=== PATIENT | male | born 1960 | race Caucasian/White ===

== ENCOUNTER 2016-08-19 11:31 | Emergency (ER) | payer BC ==
[~2016-08-19] VITALS: Ht 188 cm; Wt 97.5 kg
[~2016-08-19 11:31] MED LIST: GLYB1.257
[2016-08-19 15:09] VITALS: BP 146/97
== END 2016-08-19 16:20 | disposition home or self-care (01) ==
LOC: ER 11:37
DX: M95.12 Cauliflower ear, left ear (principal)
CPT/HCPCS: 69000

== ENCOUNTER → 2017-09-15 | Outpatient (CLI) | payer BC ==
[2017-09-15 09:09] LABS: Basophils # (auto) 0.1 uL; Basophils % (auto) 1.5 % (0.0-2.0); Eosinophils # (auto) 0.1 uL; Eosinophils % (auto) 2.6 % (0.0-7.0); Hematocrit 46.8 % (41.0-53.0); Hemoglobin 15.9 g/dL (13.5-17.5); Lymphocytes # (auto) 1.6 uL; Lymphocytes % (auto) 34.7 % (10.0-50.0); Mean Corpuscular Hemoglobin 31.6 pg (28.0-32.0); Mean Corpuscular Hgb Conc. 33.9 g/dL (32.0-36.0); Mean Corpuscular Volume 93.1 fL (80.0-100.0); Monocytes # (auto) 0.5 uL; Monocytes % (auto) 10.5 % (0.0-12.0); Neutrophils # (auto) 2.3 uL; Neutrophils % (auto) 50.7 % (37.0-80.0); Nucleated Red Blood Cells % 0.3 %; Platelet Count (auto) 232 10^3/uL (140-450); Red Blood Cells 5.03 10^6/uL (4.5-5.90); Red Cell Distribution Width 12.3 % (11.8-14.3); White Blood Cell 4.5 10^3/uL (4.4-10.8)
[2017-09-15 09:17] LABS: Urine Bacteria NONE SEEN /hpf (None Seen); Urine Blood Negative /uL (Negative); Urine Mucus FEW (None Seen); Urine Specific Gravity 1.029 (1.001-1.035); Urine WBC 1 /hpf (0 - 3)
[2017-09-15 12:05] LABS: Albumin 3.5 g/dL (3.4-5.0); BUN/Creatinine Ratio 23.3; Bilirubin, Total 0.6 mg/dL (0.2-1.0); Calcium 9.1 mg/dL (8.5-10.1); Potassium 4.9 mmol/L (3.5-5.1)
== END | disposition home or self-care (01) ==
LOC: LAB 08:51
PROVIDERS: ATTEND Internal Medicine
DX: E11.9 Type 2 diabetes mellitus without complications (principal); E78.5 Hyperlipidemia, unspecified
CPT/HCPCS: 36415; 80053; 80061; 81001; 83036; 84153; 84403; 84443; 85025

== ENCOUNTER → 2018-06-11 | Day surgery (SDC) | payer BC ==
[2018-06-07 10:05] LABS: Basophils # (auto) 0.1 uL; Basophils % (auto) 1.1 % (0.0-2.0); Eosinophils # (auto) 0.1 uL; Lymphocytes # (auto) 1.8 uL; Lymphocytes % (auto) 31.1 % (10.0-50.0); Mean Corpuscular Hemoglobin 31.5 pg (28.0-32.0); Mean Corpuscular Hgb Conc. 33.9 g/dL (32.0-36.0); Mean Corpuscular Volume 92.7 fL (80.0-100.0); Monocytes # (auto) 0.5 uL; Monocytes % (auto) 8.6 % (0.0-12.0); Neutrophils # (auto) 3.3 uL; Neutrophils % (auto) 57.2 % (37.0-80.0); Nucleated Red Blood Cells % 0.2 %; Platelet Count (auto) 249 10^3/uL (140-450); Red Blood Cells 5.07 10^6/uL (4.5-5.90); Red Cell Distribution Width 12.2 % (11.8-14.3); White Blood Cell 5.9 10^3/uL (4.4-10.8)
[2018-06-07 10:22] LABS: INR 0.86 (0.9-1.15); Partial Thromboplastin Time 26.7 sec (23.78-33.04); Prothrombin Time 9.3 sec (9.27-12.13)
[~2018-06-11] VITALS: Ht 188 cm; Wt 97.5 kg
[~2018-06-11] MED LIST changes: +ENAL2.5T PO; -GLYB1.257; +GLYB2.5T8 PO; +LABETALOL HCL 5 MG/ML 4ML SYRINGE IV ONE; +METF-370 PO; +SODIUM CHLORIDE LOCK 10 ML ONE; +diphenhdrAMINE 50mg/ml (500mg/10ml VIAL) ONE
[2018-06-11] MEDS: MIDAZOLAM HCL 5 MG/ML-1ML VIAL ONE ×2 (10:43→10:50)
[2018-06-11] MEDS: fentaNYL CITRATE 100 MCG/2 ML VL ONE ×2 (10:43→10:50)
[2018-06-11 11:37] VITALS: BP 138/92
== END | disposition home or self-care (01) ==
LOC: GI 08:32
PROVIDERS: ATTEND Internal Medicine Gastroenterology
DX: Z12.11 Encounter for screening for malignant neoplasm of colon (principal); D12.0 Benign neoplasm of cecum; D12.3 Benign neoplasm of transverse colon; K64.8 Other hemorrhoids; Z79.899 Other long term (current) drug therapy; Z79.84 Long term (current) use of oral hypoglycemic drugs; Z98.890 Other specified postprocedural states
CPT/HCPCS: 36415; 45380; 82962; 85025; 85610; 85730; 88305; 99152; J1200; J2250; J3010; J3490; J7030

== ENCOUNTER 2018-12-21 15:24 | Emergency (ER) | payer BC ==
[~2018-12-21] VITALS: Ht 188 cm; Wt 132.4 kg
[~2018-12-21 15:24] MED LIST changes: -LABETALOL HCL 5 MG/ML 4ML SYRINGE IV ONE; -SODIUM CHLORIDE LOCK 10 ML ONE; -diphenhdrAMINE 50mg/ml (500mg/10ml VIAL) ONE
[2018-12-21 15:31] VITALS: BP 153/98
== END 2018-12-21 16:32 | disposition left against medical advice (07) ==
LOC: ER 15:27
DX: M79.671 Pain in right foot (principal); Z53.21 Procedure and treatment not carried out due to patient leaving prior to being seen by health care provider

== ENCOUNTER 2018-12-22 07:22 | Emergency (ER) | payer BC ==
[~2018-12-22] VITALS: Ht 188 cm; Wt 98.9 kg
[2018-12-22 08:28] LABS: Basophils # (auto) 0.1 uL; Eosinophils # (auto) 0.2 uL; Hematocrit 42.9 % (41.0-53.0); Hemoglobin 14.6 g/dL (13.5-17.5); Lymphocytes # (auto) 1.2 uL; Lymphocytes % (auto) 14.5 % (10.0-50.0); Mean Corpuscular Hemoglobin 31.6 pg (28.0-32.0); Mean Corpuscular Volume 92.9 fL (80.0-100.0); Monocytes # (auto) 0.8 uL; Monocytes % (auto) 10.3 % (0.0-12.0); Neutrophils # (auto) 5.9 uL; Neutrophils % (auto) 72.2 % (37.0-80.0); Platelet Count (auto) 295 10^3/uL (140-450); Red Blood Cells 4.62 10^6/uL (4.5-5.90); Red Cell Distribution Width 12.3 % (11.8-14.3); White Blood Cell 8.2 10^3/uL (4.4-10.8)
[2018-12-22 08:32] LABS: Albumin 2.9 g/dL (3.4-5.0); Calcium 9.2 mg/dL (8.5-10.1)
[2018-12-22 08:38] LABS: Bilirubin, Total 0.5 mg/dL (0.2-1.0); Total Protein 7.3 g/dL (6.4-8.2)
[2018-12-22] MEDS ORDERED: SODIUM CHLORIDE 0.9% 1,000 ML IV ONE (09:15)
[2018-12-22] MEDS ORDERED: cefTRIAXone 1GM/50ML D5W 50 ML IV ONE (09:15)
[2018-12-22] MEDS ORDERED: CLINDAMYCIN 900MG IV 50 ML IV ONE (09:15)
[2018-12-22 09:28] VITALS: BP 140/76
== END 2018-12-22 10:39 | disposition left against medical advice (07) ==
LOC: ER 07:22
DX: S90.421A Blister (nonthermal), right great toe, initial encounter (principal); L08.9 Local infection of the skin and subcutaneous tissue, unspecified; L02.611 Cutaneous abscess of right foot; E11.9 Type 2 diabetes mellitus without complications; Z53.29 Procedure and treatment not carried out because of patient's decision for other reasons; X58.XXXA Exposure to other specified factors, initial encounter; Y93.89 Activity, other specified; Y99.8 Other external cause status; Y92.89 Other specified places as the place of occurrence of the external cause
CPT/HCPCS: 10060; 36415; 80053; 85025; 96365; 96368; 99283; J0696; J3490

== ENCOUNTER 2018-12-26 08:26 | Inpatient (IN) | payer BC ==
[~2018-12-26] VITALS: Ht 188 cm; Wt 101.6 kg
[2018-12-26 09:51] LABS: Albumin 2.7 g/dL (3.4-5.0); BUN/Creatinine Ratio 8.4; Calcium 8.6 mg/dL (8.5-10.1); Potassium 4.5 mmol/L (3.5-5.1)
[2018-12-26 09:52] LABS: Basophils # (auto) 0.1 uL; Basophils % (auto) 0.8 % (0.0-2.0); Eosinophils # (auto) 0.1 uL; Eosinophils % (auto) 1.6 % (0.0-7.0); Hematocrit 42.6 % (41.0-53.0); Hemoglobin 14.6 g/dL (13.5-17.5); Lymphocytes # (auto) 1.3 uL; Lymphocytes % (auto) 17.7 % (10.0-50.0); Mean Corpuscular Hemoglobin 31.7 pg (28.0-32.0); Mean Corpuscular Hgb Conc. 34.3 g/dL (32.0-36.0); Mean Corpuscular Volume 92.3 fL (80.0-100.0); Monocytes # (auto) 0.7 uL; Monocytes % (auto) 9.9 % (0.0-12.0); Neutrophils # (auto) 5.1 uL; Platelet Count (auto) 352 10^3/uL (140-450); Red Blood Cells 4.61 10^6/uL (4.5-5.90); Red Cell Distribution Width 12.2 % (11.8-14.3); White Blood Cell 7.3 10^3/uL (4.4-10.8)
[2018-12-26 09:54] LABS: Bilirubin, Total 0.3 mg/dL (0.2-1.0); Total Protein 6.9 g/dL (6.4-8.2)
[2018-12-26] MEDS ORDERED: SODIUM CHLORIDE 0.9% 1,000 ML IVB ONE (11:05)
[2018-12-26] MEDS ORDERED: VANCOMYCIN 1GM/250ML 250 ML IV ONE (11:15)
[2018-12-26] MEDS ORDERED: POTASSIUM EFFERVESENT TAB 25 MEQ PO ONE (12:45)
[2018-12-26] MEDS ORDERED: TETANUS-DIPTH-ACEL PERTUSSIS 0.5ML SYRG IM ONE (13:15)
[2018-12-26] MEDS ORDERED: HYDROcodone-ACET 5/325MG TAB PO PRN (14:00)
[2018-12-26] MEDS ORDERED: NITROGLYCERIN 0.4 MG SL TAB SL PRN (14:00)
[2018-12-26] MEDS ORDERED: DEXTROSE (50%) 50ML SYRG IV PRN (14:00)
[2018-12-26] MEDS ORDERED: MORPHINE SULF INJ 2 MG/ML SYRINGE 1ML IV PRN ×2 (14:00)
[2018-12-26] MEDS ORDERED: VANCOMYCIN PER PHARMACY 0 MG IV SCH (14:00)
[2018-12-26] MEDS ORDERED: ACETAMINOPHEN 500 MG TAB PO PRN (14:00)
[2018-12-26] MEDS ORDERED: PIPERACILLIN-TAZOB 3.375GM 100 ML IV ONE (14:15)
[2018-12-26] MEDS ORDERED: FAMOTIDINE 20 MG TAB PO ONE (14:15)
[2018-12-26 14:30] LABS: Urine WBC None Seen /hpf (0 - 3)
[2018-12-26 14:47] LABS: Urine Bacteria NONE SEEN /hpf (None Seen); Urine Blood Negative /uL (Negative); Urine Specific Gravity 1.005 (1.001-1.035)
[2018-12-26 17:18] VITALS: BP 149/95
[2018-12-26 18:25] VITALS: BP 132/72
--- NOTE | 2018-12-26 19:30 | NUR ---
OPEN SHIFT NOTE PATIENT IS ALERT AND ORIENTED X4 ON ROOM AIR, LEFT AC 20 GAUGE IS INTACT AND PATENT. FAMILY IS AT BEDSIDE. PATIENT STATES 0/10 PAIN. POC DISCUSSED AND QUESTIONS ANSWERED. BED IS LOCKED IN LOWEST POSITION WITH SIDE RAILS UP X1 FOR SAFETY. CALL LIGHT IS WITHIN REACH AND PATIENT ENCOURAGED TO CALL IF NEEDS ANYTHING. WILL CONTINUE TO ROUND Q1HR AND PRN.
[2018-12-26] MEDS: ACCU-CHEK COMFORT CURVE STRIP VI SCH ×2 (19:35→22:38)
[2018-12-26] MEDS: PIPERACILLIN-TAZOB 3.375GM 100 ML IV SCH (19:35)
[2018-12-26] MEDS: InsuLIN REG 1unit/0.01ml Soln (100units/ml) SC SCH ×2 (19:38→22:48)
[2018-12-26 20:10] VITALS: BP 137/92
[2018-12-26] MEDS: VANCOMYCIN 1GM/250ML 250 ML IV SCH (20:32)
[2018-12-26 22:00] VITALS: BP 137/92
[2018-12-26] MEDS: FAMOTIDINE 20 MG TAB PO SCH (22:38)
--- NOTE | 2018-12-26 22:50 | NUR ---
CLEANSED WOUND PATIENT HAS WOUND TO THE RIGHT GREAT TOE. CLEANSED WITH WOUND CLEANSER AND APPLIED OPTI FOAM. WOUND CONSULT IS PENDING.
[2018-12-27] MEDS: PIPERACILLIN-TAZOB 3.375GM 100 ML IV SCH ×5 (00:18→23:53)
[2018-12-27] MEDS: VANCOMYCIN 1GM/250ML 250 ML IV SCH ×2 (04:04→11:15)
[2018-12-27 05:00] VITALS: BP 136/84
[2018-12-27 07:07] LABS: Albumin 2.5 g/dL (3.4-5.0); BUN/Creatinine Ratio 7.6; Calcium 8.4 mg/dL (8.5-10.1); Potassium 3.9 mmol/L (3.5-5.1)
[2018-12-27] MEDS: InsuLIN REG 1unit/0.01ml Soln (100units/ml) SC SCH ×4 (07:07→22:21)
[2018-12-27] MEDS: ACCU-CHEK COMFORT CURVE STRIP VI SCH ×4 (07:07→22:07)
[2018-12-27 07:10] LABS: Bilirubin, Total 0.2 mg/dL (0.2-1.0); Total Protein 6.1 g/dL (6.4-8.2)
--- NOTE | 2018-12-27 08:00 | NUR ---
Opening Shift Note Assumed care of patient, awake and alert. No S/S of distress/SOB or pain. With non-healing wound on right great toe. Instructed on POC and to call for assist PRN, will continue to monitor for changes Q1hr and PRN.
--- NOTE | 2018-12-27 08:30 | NUR ---
Wound cleaning and wound dressing done. Waiting for wound consult.
--- NOTE | 2018-12-27 08:58 | NUR ---
Orders received from Dr. Yang, patient is for MRI of right foot without contrast.
[2018-12-27 09:00] VITALS: BP 137/83
[2018-12-27] MEDS ORDERED: LORazepam 2MG/ML-1ML VIAL IV ONE (09:15)
[2018-12-27] MEDS: FAMOTIDINE 20 MG TAB PO SCH ×2 (10:27→22:07)
[2018-12-27 13:00] VITALS: BP 143/87
--- NOTE | 2018-12-27 14:00 | NUR ---
WOUND CARE NOTE: PATIENT HAS RIGHT # [address] KRISHNA WILL BE PERFORMING AMPUTATION OF THE RIGHT # 1 TOE TOMORROW. SKIN/WOUND CARE PLAN UPDATED. DIETARY CONSULT ORDERED FOR WOUND. WILL DEFER ALL OTHER RECOMMENDATIONS TO DR. KRISHNA AT THIS TIME. NO FURTHER WOUND CARE NEEDED, UNLESS DR. KRISHNA ORDERS FOR POST OPERATIVE WOUND CARE.
--- NOTE | 2018-12-27 16:20 | NUR ---
Wound cleaning and dressing change with application of thera honey on the right great toe done. Per structural analysis engineer may change dressing every other day.
[2018-12-27 17:02] VITALS: BP 129/81
--- NOTE | 2018-12-27 17:52 | NUR ---
Osteomyelitis on the right great toe revealed on the right foot MRI, Dr. Yang made aware, orders received. For amputation of the right great toe tomorrow. Will place on NPO after midnight.
--- NOTE | 2018-12-27 18:54 | NUR ---
Patient made aware that he will be placed on NPO after midnight tonight and Dr. Yang will explain the details of the procedure tomorrow.
[2018-12-27 20:05] VITALS: BP 134/87
[2018-12-27] MEDS: VANCOMYCIN 1,250 MG in D5W 5% 250 ML IV SCH (20:12)
[2018-12-27 20:48] LABS: INR < 0.93 (0.9-1.15); Partial Thromboplastin Time 26.1 sec (23.64-32.05)
[2018-12-27 21:15] VITALS: BP 134/87
[2018-12-27] MEDS: INSULIN LANTUS (GLARGINE) 1 /0.01ml (100units/ml) SC SCH (22:22)
[2018-12-28] MEDS: VANCOMYCIN 1,250 MG in D5W 5% 250 ML IV SCH ×3 (03:58→20:00)
[2018-12-28 05:04] VITALS: BP 138/86
[2018-12-28] MEDS: PIPERACILLIN-TAZOB 3.375GM 100 ML IV SCH ×3 (06:00→17:40)
[2018-12-28] MEDS: ACCU-CHEK COMFORT CURVE STRIP VI SCH ×4 (06:35→21:31)
[2018-12-28] MEDS: InsuLIN REG 1unit/0.01ml Soln (100units/ml) SC SCH ×4 (06:40→21:30)
[2018-12-28 08:00] VITALS: BP 154/94
--- NOTE | 2018-12-28 08:00 | NUR ---
Opening Shift Note Assumed care of patient, awake and alert. No S/S of distress/SOB or pain. With dressing on right great toe intact. Maintained on NPO for amputation of the right great toe to be performed by Dr. Yang. Instructed on POC and to call for assist PRN, will continue to monitor for changes Q1hr and PRN.
[2018-12-28] MEDS: FAMOTIDINE 20 MG TAB PO SCH ×2 (09:46→21:19)
[2018-12-28 12:00] VITALS: BP 138/88
--- NOTE | 2018-12-28 12:30 | NUR ---
NUTRITION CONSULT/ASSESSMENT NOTES Please refer to link notes of nutrition screen form filed under the intervention section of the plan of care for further details. Est. Needs: 2050 kcal to 2550 kcal (20-25 kcal/kgBW), 86 gms to 102 gms pro (0.8-1.0 gms/kgBW). Will continue to monitor pertinent labs and reassess nutrient need prn Thank you for this consult. Addendum: 12/28/18 at [address] Amended: Links added.
--- NOTE | 2018-12-28 14:45 | NUR ---
Patient down in pre-op for amputation of right great toe to be performed by Dr. Yang. Gave reports to Debra LEONARD.
--- NOTE | 2018-12-28 17:06 | NUR ---
Received reports from TANK FARM OPERATOR, procedure has been cancelled. Patient to receive mcfp IV antibiotics. PICC line consult.
--- NOTE | 2018-12-28 17:08 | NUR ---
Patient back to his room.
--- NOTE | 2018-12-28 17:13 | NUR ---
assessment Patient is a 58 year old male who is alert and oriented. prior to admission patient lived home with family and was independent. Patients PCP is Dr Reid. Patient has no advanced directive and does not want one at this time. Patient was admitted for diabetic foot wound. Patient may need home IV ABX. Patient informed me he is teachable and so is family. Will continue to monitor for post discharge needs. Addendum: 12/28/18 at 1715 by Anita GEE Amended: Links added.
[2018-12-28 17:26] VITALS: BP 149/101
--- NOTE | 2018-12-28 19:30 | NUR ---
OPENING SAMPLE PULLER NOTE ASSUMED CARE OF PATIENT FROM ANGELA LEONARD. PATIENT IS ALERT AND ORIENTED X4, ON ROOM AIR, LEFT AC 20 GAUGE IS INTACT AND PATENT. FAMILY IS AT BEDSIDE. PATIENT STATES 0/10 PAIN. POC DISCUSSED AND QUESTIONS ANSWERED. BED IS LOCKED IN LOWEST POSITION WITH SIDE RAILS UP X1 FOR SAFETY. CALL LIGHT IS WITHIN REACH AND PATIENT ENCOURAGED TO CALL IF NEEDS ANYTHING. WILL CONTINUE TO ROUND Q1HR AND PRN.
--- NOTE | 2018-12-28 20:00 | NUR ---
WOUND CARE COMPLETE/PATIENT TEACHING ON WOUND CARE. CLEANED WITH WOUND CLEANSER, PATTED DRY WITH STERIL GAUZE, APPLIED THERAPHONEY, COVERED WITH GAUZE. REINFORCED WITH ABD AND TAPE. NON-SKID SOCK APPLIED OVER. PATIENT AND FAMILY AT BEDSIDE. RN EDUCATING ON WOUND CARE AND DM.
--- NOTE | 2018-12-28 20:10 | NUR ---
DM EDUCATION AND HANDOUTS GIVEN TO PATIENT
[2018-12-28] MEDS: INSULIN LANTUS (GLARGINE) 1 /0.01ml (100units/ml) SC SCH (21:31)
[2018-12-28 22:00] VITALS: BP 134/80
[2018-12-29] MEDS: VANCOMYCIN 1,250 MG in D5W 5% 250 ML IV SCH ×3 (04:03→20:43)
[2018-12-29 05:00] VITALS: BP 114/66
[2018-12-29] MEDS: ACCU-CHEK COMFORT CURVE STRIP VI SCH ×4 (06:17→21:22)
[2018-12-29] MEDS: PIPERACILLIN-TAZOB 3.375GM 100 ML IV SCH ×5 (06:17→23:59)
[2018-12-29] MEDS: InsuLIN REG 1unit/0.01ml Soln (100units/ml) SC SCH ×4 (06:17→21:24)
--- NOTE | 2018-12-29 07:18 | NUR ---
CLOSING NOTE CARE ENDORSED TO JACKIE LEONARD
--- NOTE | 2018-12-29 07:30 | NUR ---
Opening Shift Note Assumed care of patient, awake and alert. No S/S of distress/SOB or pain. Instructed on POC and to call for assist PRN, will continue to monitor for changes Q1hr and PRN.
--- NOTE | 2018-12-29 08:30 | NUR ---
WOUND DRESSING ON RIGHT TOE CLEAN, DRY AND INTACT.
[2018-12-29 09:02] VITALS: BP 116/77
[2018-12-29] MEDS: FAMOTIDINE 20 MG TAB PO SCH ×2 (09:41→21:21)
--- NOTE | 2018-12-29 10:30 | NUR ---
SIGNATURE OBTAINED FOR PICC LINE ORDER. PICC RN PAGED. WAITING FOR CALL BACK.
--- NOTE | 2018-12-29 12:30 | NUR ---
IV removal PT C/O DISCOMFORT ON IV SITE. SWELLING AND REDNESS NOTED. IV DC'd with clean sterile technique, catheter fully intact. Pressure dressing applied to site. Patient tolerated well. NOTE:
--- NOTE | 2018-12-29 13:09 | NUR ---
PICC LINE RN RE-PAGED. WAITING FOR CALL BACK.
--- NOTE | 2018-12-29 14:17 | NUR ---
[facility] SHE WILL BE ABLE TO DO IT AT 1600 TODAY. Addendum: 12/29/18 at 1841 by Melina Wilder RN NAME ERROR. SPOKE TO SOSA GODDARD RN.
--- NOTE | 2018-12-29 16:27 | NUR ---
PICC RN AT BEDSIDE.
--- NOTE | 2018-12-29 16:58 | NUR ---
PICC line placement Patient educated on need for PICC line placement. All risks and benefits explained and all questions and concerns addressed prior to procedure. Noted past medical history and allergies with no contraindications. INR and Plt counts within acceptable range. 4 fr PICC line inserted via right basilic vein using [employer] US and Tip Location System. Sterile technique with maximum barrier precautions utilized. Blood return obtained from single lumen and each flushed easily with NS using proper technique. PICC secured with Stat-lock; biodisc and occlusive dressing applied. Stat portable chest x-ray obtained for PICC tip placement. *Baseline Arm Circumference 31 cm. *Internal Length 45 cm. *External Length 0 cm. *PICC lot #[id number]. Note: EBL 5mls. Placed easily, tolerated procedure well.
[2018-12-29] MEDS ORDERED: LIDOCAINE 1% (LOCAL ANESTH.) PF 5ml SDV ID ONE (17:00)
--- NOTE | 2018-12-29 17:00 | NUR ---
INFORMED PHARMACY THAT PT'S 1200 VANCOMYCIN WASN'T COMPLETELY INFUSED DUE TO INFILTRATED IV. PER PHARMACY, KEEP THE 2200 SCHEDULE TONIGHT.
--- NOTE | 2018-12-29 17:40 | NUR ---
Okay to Use PICC Line X-ray completed. Primary RN notified.
[2018-12-29] MEDS: Glucerna Carbsteady SHAKE Vanilla 8oz PO SCH (18:06)
--- NOTE | 2018-12-29 18:15 | NUR ---
PICC LINE ACCESSED. ZOSYN, IV INFUSION STARTED.
--- NOTE | 2018-12-29 19:40 | NUR ---
OPENING SHIFT NOTE RECEIVED REPORT FROM DAYSHIFT RN. PATIENT RESTING COMFORTABLY IN BED WITH AT BEDSIDE. NO S/S OF DISTRESS OR SOB, PATIENT DENIES PAIN AT THIS TIME. PATIENT A/O X4, AMBULATORY. UPDATED PATIENT ON POC, VERBALIZED UNDERSTANDING. BED LOCKED IN LOW POSITION, CALL LIGHT WITHIN REACH. WILL CONTINUE TO MONITOR PATIENT Q1HR AND PRN.
[2018-12-29] MEDS: SODIUM CHLOR 0.9% PF (SALINE LOCK) 10ML VIAL/SYR IV SCH (21:21)
[2018-12-29 22:00] VITALS: BP 135/95
[2018-12-29] MEDS ORDERED: INSULIN LANTUS (GLARGINE) 1 /0.01ml (100units/ml) SC SCH (22:00)
[2018-12-30] MEDS: VANCOMYCIN 1,250 MG in D5W 5% 250 ML IV SCH ×3 (04:01→20:09)
[2018-12-30 04:50] VITALS: BP 138/85
[2018-12-30 06:00] LABS: Basophils # (auto) 0 uL; Basophils % (auto) 0.5 % (0.0-2.0); Eosinophils # (auto) 0.1 uL; Eosinophils % (auto) 1.6 % (0.0-7.0); Hemoglobin 14.1 g/dL (13.5-17.5); Lymphocytes # (auto) 1.2 uL; Mean Corpuscular Hemoglobin 31.6 pg (28.0-32.0); Mean Corpuscular Hgb Conc. 34.4 g/dL (32.0-36.0); Mean Corpuscular Volume 91.7 fL (80.0-100.0); Monocytes # (auto) 0.8 uL; Neutrophils # (auto) 6.6 uL; Neutrophils % (auto) 74.9 % (37.0-80.0); Platelet Count (auto) 316 10^3/uL (140-450); Red Blood Cells 4.47 10^6/uL (4.5-5.90); Red Cell Distribution Width 12.7 % (11.8-14.3); White Blood Cell 8.7 10^3/uL (4.4-10.8)
[2018-12-30 06:13] LABS: Calcium 8.2 mg/dL (8.5-10.1); Potassium 3.7 mmol/L (3.5-5.1)
[2018-12-30 06:15] LABS: BUN/Creatinine Ratio 8.5
[2018-12-30] MEDS: PIPERACILLIN-TAZOB 3.375GM 100 ML IV SCH ×4 (06:16→22:02)
[2018-12-30] MEDS: ACCU-CHEK COMFORT CURVE STRIP VI SCH ×4 (06:16→22:03)
[2018-12-30] MEDS: InsuLIN REG 1unit/0.01ml Soln (100units/ml) SC SCH ×4 (06:17→22:04)
[2018-12-30] MEDS: Glucerna Carbsteady SHAKE Vanilla 8oz PO SCH ×3 (08:00→17:22)
[2018-12-30 09:25] VITALS: BP 148/88
[2018-12-30] MEDS: FAMOTIDINE 20 MG TAB PO SCH ×2 (10:00→22:02)
[2018-12-30] MEDS: SODIUM CHLOR 0.9% PF (SALINE LOCK) 10ML VIAL/SYR IV SCH ×2 (10:00→22:02)
--- NOTE | 2018-12-30 10:30 | NUR ---
Rounds Patient awake and alert. No S/S of distress/SOB or pain. Will continue to monitor changes q1hr and PRN.
[2018-12-30 12:34] VITALS: BP 131/79
--- NOTE | 2018-12-30 15:34 | NUR ---
WOUND CARE WOUND ON RIGHT GREAT TOE CLEANED, AND DRESSED WITH THERA HONEY AND GAUZE PAD. SECURED WITH TAPE. PT TOLERATED WELL. AT BEDSIDE.
[2018-12-30 17:17] VITALS: BP 125/77
--- NOTE | 2018-12-30 18:37 | NUR ---
Rounds Patient awake and alert. No S/S of distress/SOB or pain. Will continue to monitor changes q1hr and PRN.
--- NOTE | 2018-12-30 19:35 | NUR ---
OPENING SHIFT NOTE RECEIVED REPORT FROM DAYSHIFT RN. PATIENT RESTING COMFORTABLY IN BED WITH EYES CLOSED. NO S/S OF DISTRESS OR SOB, PATIENT DENIES PAIN AT THIS TIME. PATIENT A/O X4, AMBULATORY. UPDATED PATIENT ON POC, VERBALIZED UNDERSTANDING. BED LOCKED IN LOW POSITION, CALL LIGHT WITHIN REACH. WILL CONTINUE TO MONITOR PATIENT Q1HR AND PRN.
[2018-12-30 22:00] VITALS: BP 145/82
[2018-12-30] MEDS ORDERED: INSULIN LANTUS (GLARGINE) 1 /0.01ml (100units/ml) SC SCH (22:00)
[2018-12-31] MEDS: PIPERACILLIN-TAZOB 3.375GM 100 ML IV SCH (02:56)
[2018-12-31] MEDS: VANCOMYCIN 1,250 MG in D5W 5% 250 ML IV SCH ×2 (04:00→12:14)
[2018-12-31 05:19] VITALS: BP 152/92
[2018-12-31] MEDS: InsuLIN REG 1unit/0.01ml Soln (100units/ml) SC SCH ×4 (06:26→21:49)
[2018-12-31] MEDS: ACCU-CHEK COMFORT CURVE STRIP VI SCH ×4 (06:26→21:48)
[2018-12-31 06:47] LABS: Basophils # (auto) 0.1 uL; Basophils % (auto) 0.6 % (0.0-2.0); Eosinophils # (auto) 0.1 uL; Eosinophils % (auto) 1.6 % (0.0-7.0); Hematocrit 42.1 % (41.0-53.0); Hemoglobin 14.5 g/dL (13.5-17.5); Lymphocytes % (auto) 11.4 % (10.0-50.0); Mean Corpuscular Hemoglobin 31.5 pg (28.0-32.0); Mean Corpuscular Hgb Conc. 34.5 g/dL (32.0-36.0); Mean Corpuscular Volume 91.4 fL (80.0-100.0); Monocytes # (auto) 0.7 uL; Monocytes % (auto) 8.1 % (0.0-12.0); Neutrophils # (auto) 7.1 uL; Neutrophils % (auto) 78.3 % (37.0-80.0); Platelet Count (auto) 323 10^3/uL (140-450); Red Blood Cells 4.61 10^6/uL (4.5-5.90); Red Cell Distribution Width 12.4 % (11.8-14.3); White Blood Cell 9.1 10^3/uL (4.4-10.8)
[2018-12-31 07:07] LABS: BUN/Creatinine Ratio 8.1; Calcium 8.4 mg/dL (8.5-10.1); Potassium 3.9 mmol/L (3.5-5.1)
[2018-12-31] MEDS: Glucerna Carbsteady SHAKE Vanilla 8oz PO SCH ×3 (08:00→18:40)
--- NOTE | 2018-12-31 08:38 | NUR ---
Weekend access consultant-I received a page 12/30/18 from nurse Melina letting me know that this patient has order to go home on IV ATB-I let her know that this was not something that could be taken care of on a Monday and that we would have to follow up on Monday. [facility] closed on Sundays as well.
[2018-12-31 09:24] VITALS: BP 157/89
[2018-12-31] MEDS: FAMOTIDINE 20 MG TAB PO SCH ×2 (10:45→21:48)
[2018-12-31] MEDS: LEVOFLOXACIN 750MG 150 ML IV SCH (10:45)
[2018-12-31] MEDS: SODIUM CHLOR 0.9% PF (SALINE LOCK) 10ML VIAL/SYR IV SCH ×2 (10:46→21:48)
[2018-12-31] MEDS ORDERED: INSULIN LANTUS (GLARGINE) 1 /0.01ml (100units/ml) SC ONE (11:30)
--- NOTE | 2018-12-31 11:51 | NUR ---
Nutrition Follow-up Notes Wt.: 101.6 kg Pt was sleeping with no family by bedside. per nursing pt with no distress noted currently on CCHO 60 gm/meal diet with Glucerna 1 carton tid. pt with adequate PO of 100% x 4 per RN doc Est. Needs: 2050 kcal to 2550 kcal (20-25 kcal/kgBW), 86 gms to 102 gms pro (0.8-1.0 gms/kgBW). Will continue to monitor pertinent labs and reassess nutrient need prn Labs: GLU 205 H, CA 8.4 L. Skin: Curly scale 20 mod risk,puncture on toe per packager and strapper. refer to WC notes for details GI: Pt had 1 BM today per packager and strapper. PES: Altered nutrition related lab values r/t current/chronic medical condition aeb hyperglycemia, hyperchloremia, elev. HbA1c,low AST, hypocalcemia and mod hypoalbuminemia Will continue to monitor PO intake, skin status, pertinent labs and weight trend. F/u in 3-5 days. Rec.: 1.) Consider Consistent High Carb: 75 gms/meal diet. 2.) If Albumin level continues trending down, consider Prostat 1 pkt BID. 3.) Consider daily MVI with minerals and Asc acid 500 mgs BID. 4.) Consider close supervision and feeding assistance prn during meals 5.) Refer to CDE/RD for further nutrition education and weight monitoring upon discharged. 6.) Continue current plan of care.
[2018-12-31 13:00] VITALS: BP 155/100
--- NOTE | 2018-12-31 14:24 | NUR ---
faxed ss order for home abx to [facility] in managed care, [facility] and [facility]
--- NOTE | 2018-12-31 16:20 | NUR ---
[facility] NOT CONTRACTED WITH BS. I SPOKE TO ANITA AT [facility] AND THEY CAN PROVIDE HH. ANITA IS TO CONTACT PT DUC AND WILL ARRANGE [facility] ON 01-02-19
[2018-12-31 16:53] VITALS: BP 160/96
--- NOTE | 2018-12-31 18:41 | NUR ---
Diabetes and insulin administration education provided including sliding scale coverage.
--- NOTE | 2018-12-31 18:41 | NUR ---
Care endorsed to power and recovery shift engineer RN. No S/s of distress or SOB.
[2018-12-31 22:00] VITALS: BP 156/93
[2018-12-31] MEDS ORDERED: INSULIN LANTUS (GLARGINE) 1 /0.01ml (100units/ml) SC SCH (22:00)
[2019-01-01 05:39] VITALS: BP 112/53
[2019-01-01] MEDS: ACCU-CHEK COMFORT CURVE STRIP VI SCH ×2 (06:17→11:58)
[2019-01-01] MEDS: InsuLIN REG 1unit/0.01ml Soln (100units/ml) SC SCH ×2 (06:18→11:58)
[2019-01-01 06:55] LABS: Basophils # (auto) 0.1 uL; Basophils % (auto) 0.6 % (0.0-2.0); Eosinophils # (auto) 0.1 uL; Eosinophils % (auto) 1.1 % (0.0-7.0); Hematocrit 44.6 % (41.0-53.0); Hemoglobin 14.8 g/dL (13.5-17.5); Lymphocytes # (auto) 1.2 uL; Lymphocytes % (auto) 11.4 % (10.0-50.0); Mean Corpuscular Hemoglobin 30.8 pg (28.0-32.0); Mean Corpuscular Hgb Conc. 33.3 g/dL (32.0-36.0); Mean Corpuscular Volume 92.6 fL (80.0-100.0); Monocytes # (auto) 0.9 uL; Monocytes % (auto) 8.4 % (0.0-12.0); Neutrophils # (auto) 8.1 uL; Neutrophils % (auto) 78.5 % (37.0-80.0); Nucleated Red Blood Cells % 0.1 %; Platelet Count (auto) 326 10^3/uL (140-450); Red Blood Cells 4.82 10^6/uL (4.5-5.90); Red Cell Distribution Width 12.4 % (11.8-14.3); White Blood Cell 10.3 10^3/uL (4.4-10.8)
--- NOTE | 2019-01-01 07:15 | NUR ---
Opening Shift Note Assumed care of patient, awake and alert, sitting up in bed watching television. No S/S of distress/SOB, no pain noted or reported at this time. Respirations are even and unlabored. Instructed on POC and instructed to call for assistance as needed, pt. verbalized understanding. Bed locked in lowest position, side rails up x2, call light within reach. Will continue to monitor for changes Q1hr and PRN.
[2019-01-01 07:36] LABS: BUN/Creatinine Ratio 12.1; Calcium 9.4 mg/dL (8.5-10.1); Potassium 3.7 mmol/L (3.5-5.1)
[2019-01-01 08:43] VITALS: BP 164/97
--- NOTE | 2019-01-01 08:51 | NUR ---
Jen from [facility] left me a message stating everything has been arranged and she spoke to pt. I have called Jen back and left a message for her to let me know what HH agency they are using or if they are providing the nurse themselves.
[2019-01-01] MEDS: LEVOFLOXACIN 750MG 150 ML IV SCH (09:42)
[2019-01-01] MEDS: Glucerna Carbsteady SHAKE Vanilla 8oz PO SCH ×2 (09:42→11:58)
[2019-01-01] MEDS: SODIUM CHLOR 0.9% PF (SALINE LOCK) 10ML VIAL/SYR IV SCH (09:42)
[2019-01-01] MEDS: FAMOTIDINE 20 MG TAB PO SCH (09:42)
--- NOTE | 2019-01-01 12:54 | NUR ---
Kellie at [facility] stated [facility] have nurses that provide teaching and hanging infusion for this pt, so "HH" and infusion is all arranged and pt can go home from a CM's stand point
--- NOTE | 2019-01-01 15:30 | NUR ---
Discharge instructions given as ordered. Pt. going home with 4 weeks home health for Antibiotics. Encourage to follow up with REGENERATOR OPERATOR as instructed. All questions and concerns addressed. Patient verbalized understanding. Medication reconciliation form completed and copy given to patient. DC wound care photo taken. Patient taken to vehicle via wheelchair with all personal belongings, accompanied by staff and family member. No distress noted at time of departure.
--- NOTE | 2019-01-02 16:57 | NUR ---
MEDICATION PT AND HOME HEALTH NURSE CALLED [facility] AND SPOKE TO THIS POWER LINE INSTALLER AND REPAIRER RE: THE INABILITY TO FILL INSULIN SCRIPT DUE TO THE WAY IT WAS WRITTEN BY DR MORENO. PT ATTEMPTING TO FILL SCRIPT AT [facility] ON [address] IN [place]. CALLED [facility] AND SPOKE TO PHARMACIST TO CLARIFY ORDER. PT CALLED ([phone]) AND NOTIFIED THAT THE SCRIPTS WILL BE AVAIL TO [facility] IN 30 MIN. [facility] NURSE ALSO NOTIFIED ([phone]).
== END 2019-01-01 15:30 | disposition home health service (06) | DRG 638 ==
LOC: ER 08:26 → OVERFLOW 08:27 → WEST WING 15:12
PROVIDERS: ADMIT Nurse Practitioner Acute Care; ATTEND Internal Medicine Pulmonary Disease
PROC: 02HV33Z Insertion of Infusion Device into Superior Vena Cava, Percutaneous Approach (ICD-10-PCS; principal; 2018-12-29)
DX: E11.69 Type 2 diabetes mellitus with other specified complication (principal); E44.0 Moderate protein-calorie malnutrition; M86.8X7 Other osteomyelitis, ankle and foot; L03.031 Cellulitis of right toe; E11.621 Type 2 diabetes mellitus with foot ulcer; L97.519 Non-pressure chronic ulcer of other part of right foot with unspecified severity; I10 Essential (primary) hypertension; E11.65 Type 2 diabetes mellitus with hyperglycemia; B95.61 Methicillin susceptible Staphylococcus aureus infection as the cause of diseases classified elsewhere; S90.451A Superficial foreign body, right great toe, initial encounter; X58.XXXA Exposure to other specified factors, initial encounter; Y93.89 Activity, other specified; Y92.89 Other specified places as the place of occurrence of the external cause; Z23 Encounter for immunization; Z79.84 Long term (current) use of oral hypoglycemic drugs; Y99.8 Other external cause status; Z91.14 Patient's other noncompliance with medication regimen; Z79.899 Other long term (current) drug therapy
CPT/HCPCS: 36415; 36569; 71045; 71046; 73700; 73718; 80048; 80053; 80202; 81001; 82962; 83036; 85025; 85610; 85730; 87077; 87186; 87205; 90471; 90715; 93005; 96365; 96368; G0378; J1815; J1956; J2543; J7060

== ENCOUNTER → 2019-03-13 | Day surgery (SDC) | payer BC ==
[2019-03-07 14:39] LABS: Urine Bacteria NONE SEEN /hpf (None Seen); Urine Blood Negative /uL (Negative); Urine Mucus FEW (None Seen); Urine Specific Gravity 1.021 (1.001-1.035); Urine WBC 1 /hpf (0 - 3)
[2019-03-07 14:44] LABS: Basophils # (auto) 0.1 uL; Eosinophils # (auto) 0.1 uL; Eosinophils % (auto) 2.2 % (0.0-7.0); Hematocrit 44.1 % (41.0-53.0); Lymphocytes # (auto) 1.4 uL; Lymphocytes % (auto) 22.6 % (10.0-50.0); Mean Corpuscular Hemoglobin 30.9 pg (28.0-32.0); Monocytes # (auto) 0.5 uL; Monocytes % (auto) 8.9 % (0.0-12.0); Neutrophils % (auto) 65.3 % (37.0-80.0); Nucleated Red Blood Cells % 0.1 %; Platelet Count (auto) 245 10^3/uL (140-450); Red Blood Cells 4.84 10^6/uL (4.5-5.90); Red Cell Distribution Width 13.7 % (11.8-14.3); White Blood Cell 6.1 10^3/uL (4.4-10.8)
[2019-03-07 14:50] LABS: INR < 0.93 (0.9-1.15); Partial Thromboplastin Time 26.9 sec (23.64-32.05)
[2019-03-07 15:07] LABS: Albumin 3.6 g/dL (3.4-5.0); BUN/Creatinine Ratio 13.7; Calcium 8.7 mg/dL (8.5-10.1); Potassium 4.5 mmol/L (3.5-5.1)
[2019-03-07 15:10] LABS: Bilirubin, Total 0.5 mg/dL (0.2-1.0); Total Protein 7.1 g/dL (6.4-8.2)
[~2019-03-13] VITALS: Ht 188 cm; Wt 99.8 kg
[~2019-03-13] MED LIST changes: +ACCU-CHEK COMFORT CURVE STRIP VI ONE; -ENAL2.5T PO; +GLIP1TAB8 PO; -GLYB2.5T8 PO; +HYDROmorphone HCL 2 MG/ML VL IV PRN; +LEVO1INJ IV; +METOCLOPRAMIDE HCL 5MG/ml INJ 2ml VIAL IV PRN; +MIDAZOLAM HCL 1MG/1ML-2 ML VIAL ONE; +ONDANSETRON HCL 4 MG/2 ML VIAL ONE; +PROPOFOL 10 MG/ML 20 ML IV ONE; +ROPIVACAINE 0.5% (5MG/ML) 20ML AMPULE IJ ONE; +SODIUM CHLORIDE LOCK 10 ML ONE; +ceFAZolin 1GM VL ONE; +ceFAZolin 1GM/50ML 50 ML IV ONE; +fentaNYL CITRATE 100 MCG/2 ML VL IV PRN; +fentaNYL CITRATE 100 MCG/2 ML VL ONE
[2019-03-13 10:30] VITALS: BP 145/93
== END | disposition home or self-care (01) ==
LOC: SUR 09:55
PROVIDERS: ATTEND Podiatrist Foot & Ankle Surgery
DX: E11.69 Type 2 diabetes mellitus with other specified complication (principal); M86.171 Other acute osteomyelitis, right ankle and foot; M86.8X8 Other osteomyelitis, other site; I10 Essential (primary) hypertension; E11.40 Type 2 diabetes mellitus with diabetic neuropathy, unspecified; E11.22 Type 2 diabetes mellitus with diabetic chronic kidney disease; I12.9 Hypertensive chronic kidney disease with stage 1 through stage 4 chronic kidney disease, or unspecified chronic kidney disease; N18.3 Chronic kidney disease, stage 3 (moderate); G40.909 Epilepsy, unspecified, not intractable, without status epilepticus; Z79.899 Other long term (current) drug therapy; Z98.890 Other specified postprocedural states
CPT/HCPCS: 28825; 36415; 80053; 81001; 82962; 85025; 85610; 85730; J0690; J2250; J2405; J2704; J2795; J3010; L3260

== ENCOUNTER → 2019-04-05 | Outpatient (CLI) | payer BC ==
[~2019-04-05] MED LIST changes: -ACCU-CHEK COMFORT CURVE STRIP VI ONE; -HYDROmorphone HCL 2 MG/ML VL IV PRN; -METOCLOPRAMIDE HCL 5MG/ml INJ 2ml VIAL IV PRN; -MIDAZOLAM HCL 1MG/1ML-2 ML VIAL ONE; -ONDANSETRON HCL 4 MG/2 ML VIAL ONE; -PROPOFOL 10 MG/ML 20 ML IV ONE; -ROPIVACAINE 0.5% (5MG/ML) 20ML AMPULE IJ ONE; -SODIUM CHLORIDE LOCK 10 ML ONE; -ceFAZolin 1GM VL ONE; -ceFAZolin 1GM/50ML 50 ML IV ONE; -fentaNYL CITRATE 100 MCG/2 ML VL IV PRN; -fentaNYL CITRATE 100 MCG/2 ML VL ONE
[2019-04-05 09:33] LABS: Urine Bacteria NONE SEEN /hpf (None Seen); Urine Blood Negative /uL (Negative); Urine Mucus FEW (None Seen); Urine WBC 4 /hpf (0 - 3)
[2019-04-05 09:42] LABS: Cholesterol 186 mg/dL (< 200)
[2019-04-05 09:44] LABS: HDL Cholesterol 54 mg/dL (40-59); LDL Cholesterol 118 mg/dL (< 100); Triglycerides 75 mg/dL (< 150)
== END | disposition home or self-care (01) ==
LOC: LAB 08:27
PROVIDERS: ATTEND Internal Medicine
DX: Z12.11 Encounter for screening for malignant neoplasm of colon (principal); Z12.5 Encounter for screening for malignant neoplasm of prostate; E78.5 Hyperlipidemia, unspecified; E11.9 Type 2 diabetes mellitus without complications; I10 Essential (primary) hypertension
CPT/HCPCS: 36415; 80061; 81001; 82043; 82306; 83036; 84153

== ENCOUNTER → 2019-05-03 | Outpatient (CLI) | payer BC ==
[2019-05-03 09:49] LABS: BUN/Creatinine Ratio 21.5; Calcium 9.1 mg/dL (8.5-10.1); Potassium 4.1 mmol/L (3.5-5.1)
== END | disposition home or self-care (01) ==
LOC: LAB 08:45
PROVIDERS: ATTEND Internal Medicine
DX: E11.9 Type 2 diabetes mellitus without complications (principal); I10 Essential (primary) hypertension
CPT/HCPCS: 36415; 80048

== ENCOUNTER → 2019-11-08 | Outpatient (CLI) | payer BC ==
[2019-11-08 10:36] LABS: Albumin 3.4 g/dL (3.4-5.0); Calcium 9.1 mg/dL (8.5-10.1); Potassium 4.5 mmol/L (3.5-5.1)
[2019-11-08 10:41] LABS: BUN/Creatinine Ratio 23.1; Bilirubin, Total 0.4 mg/dL (0.2-1.0); Total Protein 6.9 g/dL (6.4-8.2)
== END | disposition home or self-care (01) ==
LOC: LAB 10:01
PROVIDERS: ATTEND Internal Medicine
DX: Z12.11 Encounter for screening for malignant neoplasm of colon (principal); E11.9 Type 2 diabetes mellitus without complications; I10 Essential (primary) hypertension
CPT/HCPCS: 36415; 80053; 80061; 83036

== ENCOUNTER → 2019-11-22 | Outpatient (CLI) | payer BC ==
[2019-11-22 09:53] LABS: Albumin 3.4 g/dL (3.4-5.0)
[2019-11-22 09:56] LABS: Bilirubin, Direct 0.1 mg/dL (0-0.2); Bilirubin, Total 0.5 mg/dL (0.2-1.0)
== END | disposition home or self-care (01) ==
LOC: LAB 09:16
PROVIDERS: ATTEND Internal Medicine
DX: I10 Essential (primary) hypertension (principal); E11.9 Type 2 diabetes mellitus without complications
CPT/HCPCS: 36415; 80076

== ENCOUNTER → 2020-02-14 | Outpatient (CLI) | payer BC ==
[2020-02-14 08:50] LABS: Albumin 3.5 g/dL (3.4-5.0)
[2020-02-14 08:53] LABS: Bilirubin, Direct 0.2 mg/dL (0-0.2); Bilirubin, Total 0.6 mg/dL (0.2-1.0); Total Protein 6.6 g/dL (6.4-8.2)
== END | disposition home or self-care (01) ==
LOC: LAB 08:22
PROVIDERS: ATTEND Internal Medicine
DX: E11.9 Type 2 diabetes mellitus without complications (principal); I10 Essential (primary) hypertension
CPT/HCPCS: 36415; 80061; 80076; 83036

== ENCOUNTER → 2020-03-20 | Outpatient (CLI) | payer BC ==
[2020-03-20 09:17] LABS: Alanine Aminotransferase 41 U/L (16-61); Albumin 3.5 g/dL (3.4-5.0); Alkaline Phosphatase 113 U/L (45-117); Aspartate Aminotransferase 26 U/L (15-37); Bilirubin, Direct < 0.1 mg/dL (0-0.2); Bilirubin, Total 0.4 mg/dL (0.2-1.0); Total Protein 6.7 g/dL (6.4-8.2)
== END | disposition home or self-care (01) ==
LOC: LAB 08:23
PROVIDERS: ATTEND Internal Medicine
DX: E78.5 Hyperlipidemia, unspecified (principal)
CPT/HCPCS: 36415; 80076

== ENCOUNTER → 2020-11-06 | Outpatient (CLI) | payer BC ==
[2020-11-06 10:36] LABS: Albumin 3.5 g/dL (3.4-5.0); Potassium 4.8 mmol/L (3.5-5.1)
[2020-11-06 10:43] LABS: BUN/Creatinine Ratio 29.5; Bilirubin, Total 0.5 mg/dL (0.2-1.0); Calcium 9.1 mg/dL (8.5-10.1); Total Protein 6.9 g/dL (6.4-8.2)
== END | disposition home or self-care (01) ==
LOC: LAB 09:22
PROVIDERS: ATTEND Internal Medicine
DX: E11.9 Type 2 diabetes mellitus without complications (principal); E78.5 Hyperlipidemia, unspecified
CPT/HCPCS: 36415; 80053; 80061; 83036

== ENCOUNTER → 2021-12-24 | Outpatient (CLI) | payer BC ==
[2021-12-24 10:25] LABS: Albumin 3.4 g/dL (3.4-5.0); Calcium 8.9 mg/dL (8.5-10.1); Potassium 4.2 mmol/L (3.5-5.1)
[2021-12-24 10:30] LABS: BUN/Creatinine Ratio 29.6; Bilirubin, Total 0.6 mg/dL (0.2-1.0); Total Protein 6.6 g/dL (6.4-8.2)
== END | disposition home or self-care (01) ==
LOC: LAB 09:24
PROVIDERS: ATTEND Internal Medicine
DX: E11.9 Type 2 diabetes mellitus without complications (principal); I10 Essential (primary) hypertension; E78.5 Hyperlipidemia, unspecified
CPT/HCPCS: 36415; 80053; 80061; 82043; 83036